=== PATIENT | male | born 1930 | race Caucasian/White ===

== ENCOUNTER 2016-09-01 20:04 | Emergency (ER) | payer MEDICARE, OTHER ==
[2016-09-01 20:23] VITALS: PULSE 68; RESP 18; TEMP 97.7; O2SAT 93
--- NOTE | 2016-09-01 20:29 | EDPHY ---
H & P Stated Complaint: high BP Time Seen by Provider: 09/01/16 20:29 - Personal History Current Tetanus Diphtheria and Acellular Pertussis (TDAP): Yes - Medical/Surgical History Hx Asthma: No Hx Chronic Respiratory Disease: No Hx Diabetes: No Hx Cardiac Disease: Yes Hx Renal Disease: No Hx Cirrhosis: No Hx Alcoholism: No Hx HIV/AIDS: No Hx Splenectomy or Spleen Trauma: No Other PMH: HTN, BPH, high cholesterol - Social History Smoking Status: Former smoker Constitutional: Initial Vital Signs Temperature (C) 36.5 C 09/01/16 20:20 Heart Rate 68 09/01/16 20:20 Respiratory Rate 18 09/01/16 20:20 Blood Pressure 178/80 H 09/01/16 20:20 O2 Sat (%) 93 09/01/16 20:20 O2 Delivery Mode Room Air Allergies/Adverse Reactions: inositol Allergy (Verified 09/01/16 20:19) Home Medications: Medication Instructions Recorded Flomax 0.4 MG (*) 09/01/16 Lipitor 10 mg (*) 09/01/16 Losartan Potassium 09/01/16 NIFEDipine 09/01/16 Medical Decision Making ED Course/Re-evaluation: CHIEF COMPLAINT: Worried about high blood pressure HISTORY OF PRESENT ILLNESS: Patient is 86 years old and takes 2 antihypertensives. He noticed today that his blood pressure was running a little higher than usual. He has had no symptoms whatsoever. He denies chest pain chest pressure shortness of breath nausea vomiting any neurologic problems. He denies headache. He denies any weakness in any extremity. He was busy working all day. He works out extensively. He has had 2 heart catheterizations over the last 10 years which have been unremarkable. He has had 2 or 3 treadmill test which have also been unremarkable. Does have an appointment with Dr. Gracia on Friday as a routine follow-up. REVIEW OF SYSTEMS: A 10 point review of systems was performed and is negative with the exception of the elements mentioned in the history of present illness. PHYSICAL EXAM: HR, BP, O2 Sat, RR. Temp noted General Appearance: Alert, well hydrated, appropriate, and non-toxic appearing. Head: Atraumatic without scalp tenderness or obvious injury Eyes: Pupils equal, round, reactive to light and accommodation, EOMI, no trauma , no injection. Ears: Clear bilaterally, no perforation, normal landmarks Nose: Atraumatic, no rhinorrhea, clear. Throat: There is no erythema or exudates, no lesions, normal tonsils, mucus membranes moist. Neck: Supple, 2+ carotid upstroke, nontender, no lymphadenopathy. Respiratory: No retractions, no distress, no wheezes, and no accessory muscle use. Lungs are clear to auscultation bilaterally. Cardiovascular: Regular rate and rhythm, no murmurs, rubs, or gallops. Bilateral carotid, radial, dorsalis pedis, and posterior tibial pulses intact. Good capillary refill all extremities. Gastrointestinal: Abdomen is soft, nontender, non-distended, no masses, no rebound, no guarding, no peritoneal signs. Musculoskeletal: Normal active ROM of all extremities, atraumatic. Neurological: Alert, appropriate, and interactive. The patient has normal DTRs and non-focal cranial nerves, motor, sensory, and cerebellar exam. Skin: No rashes, good turgor, no nodules on palpation. Past medical history: Hypertension, questionable leaky heart valve is not sure which one Past surgical history: Noncontributory Family history: Noncontributory Social history: Retired, , does not abuse tobacco drugs and alcohol, very active DIFFERENTIAL DIAGNOSIS: Includes but is not limited to hypertension secondary to illness, secondary to missing medicine dose, secondary to change in medicine , secondary to some medical problem MEDICAL DECISION MAKING: No evidence for hypertensive urgency or emergency. Patient will be discharged on his nifedipine and referral to his PCP for follow up. This patient's blood pressure here is only 175/85-90. He has no symptoms whatsoever. I asked him to take his 30 mg of extended release nifedipine now. He will recheck his pressure an our intake additional nifedipine dose if his diastolic pressure still greater than 90. He has been told to come back immediately if he develops any symptoms whatsoever with his high blood pressure. He will follow up with Dr. Gracia on Friday as scheduled. He has needed to take 60 mg and I felt pain in the past and they recently dropped him down so he may just be running slightly higher due to that change in medicine. Departure - Departure Disposition: Home, Routine, Self-Care Clinical Impression: Hypertension Qualifiers: Hypertension type: essential hypertension Qualifier Code: (I10) Essential ( primary) hypertension Condition: Good Instructions: Hypertension (ED) Additional Instructions: 1. Take your nifedipine as prescribed. If your pressure is still high upon your return home for 30 minutes, take one additional dose. 2. Follow up with your primary care provider for symptoms not improved over the next week. 3. Return to the ED for severe headache, lightheadedness, chest pain, shortness of breath, or other worsening of condition. Referrals: Matteo Gracia MD [Primary Care Provider] - As per Instructions
[2016-09-01 20:53] VITALS: BP 178/92
[2016-09-01] MEDS ORDERED: NIFEdipine ER 30 MG TAB PO SCH (21:00)
== END 2016-09-01 20:58 | disposition home or self-care (01) ==
DX: I10 Essential (primary) hypertension (principal); Z87.891 Personal history of nicotine dependence